=== PATIENT | female | born 1945 | race Caucasian/White ===

== ENCOUNTER → 2020-04-12 | Outpatient (CLI) | payer MEDICARE, OTHER ==
[~2020-04-12] MED LIST: RT-ALBUTEROL SULF 2.5 MG/3 ML PRE-MIX VIAL INH ONE
== END ==
LOC: SLEEP 14:02
PROVIDERS: ATTEND Nurse Practitioner Family
DX: G47.33 Obstructive sleep apnea (adult) (pediatric) (principal); G47.10 Hypersomnia, unspecified; E66.01 Morbid (severe) obesity due to excess calories; R05 Cough; Z91.14 Patient's other noncompliance with medication regimen
CPT/HCPCS: 94060; 94726; 94729; G0399

== ENCOUNTER → 2020-05-19 | Outpatient (CLI) | payer MEDICARE, OTHER ==
--- NOTE | 2020-05-19 10:14 | Diagnostic Imaging Report ---
PROCEDURE: US Venous Lower Ext [place]. TECHNIQUE: Multiple real-time grayscale images were obtained over the lower extremities in various projections, bilaterally. Additional duplex Doppler and color Doppler images were also obtained. INDICATION: Bilateral leg swelling. FINDINGS: Color Doppler imaging shows normal blood flow throughout the lower extremity venous system bilaterally. Calf compression showed normal augmentation of flow at the popliteal level. No evidence of popliteal cyst. IMPRESSION: No evidence of venous thrombosis. Dictated by: Dictated on workstation # [id number]
--- NOTE | 2020-05-19 10:40 | Diagnostic Imaging Report ---
PROCEDURE: CT chest without contrast. TECHNIQUE: Multiple contiguous axial images were obtained through the chest without the use of intravenous contrast. Auto Exposure Controls were utilized during the CT exam to meet ALARA standards for radiation dose reduction. INDICATION: Leg swelling COMPARISON: None available FINDINGS: No pathologically enlarged lymph nodes within the chest. Moderate scattered vascular calcifications within the thoracic aorta and its branch vessels, including within the coronary arteries. The heart is borderline enlarged. No pericardial effusion. No significant pleural effusion. Tiny hiatal hernia. No pneumothorax. Calcified granuloma within the right upper lobe. Reticular opacities with associated peribronchial thickening and mild tree-in-bud nodularity is identified within the left lower lobe and lingula. Multiple 6 mm and smaller pulmonary nodules are noted within the lungs bilaterally. The trachea is patent. Cholecystectomy. The left kidney is surgically absent. Chronic healed right-sided rib fractures. Scattered osseous degenerative changes without acute osseous normality. IMPRESSION: Focal reticular opacities and interstitial opacities within the left lower lobe with peribronchial thickening, likely relates to a focal bronchopneumonia. Multiple bilateral sub-6 mm pulmonary nodules. These are indeterminate. However, given provided history, metastatic disease is not excluded. Comparison to prior imaging would be beneficial. If no prior imaging is available, then a follow-up CT of the chest is recommended in 6 months to reevaluate. The heart is borderline enlarged. Left nephrectomy. Dictated by: Dictated on workstation # [id number]
== END ==
LOC: RAD 08:45
PROVIDERS: ATTEND Nurse Practitioner Family
DX: M79.89 Other specified soft tissue disorders (principal); R91.8 Other nonspecific abnormal finding of lung field; I51.7 Cardiomegaly; R94.2 Abnormal results of pulmonary function studies; R06.00 Dyspnea, unspecified; R05 Cough; Z90.5 Acquired absence of kidney
CPT/HCPCS: 71250; 93970

== ENCOUNTER 2020-06-01 05:39 | Outpatient (CLI) | payer MEDICARE, OTHER ==
[~2020-06-01] VITALS: Ht 160 cm; Wt 98.1 kg
[2020-06-01] MEDS ORDERED: VITA-235 PO (13:59)
[2020-06-01] MEDS ORDERED: ALEN70TA5 PO (14:53)
[2020-06-01] MEDS ORDERED: SOLI5TAB7 PO (14:53)
[2020-06-01] MEDS ORDERED: ALPR0.254 PO (14:53)
[2020-06-01] MEDS ORDERED: MONT10TA26 PO (14:53)
[2020-06-01] MEDS ORDERED: PANT40TA3 PO (14:53)
[2020-06-01] MEDS ORDERED: GLIM4TAB5 PO (14:53)
[2020-06-01] MEDS ORDERED: CHOL400T PO (14:53)
[2020-06-01] MEDS ORDERED: CYAN250010 PO (14:53)
[2020-06-01] MEDS ORDERED: MULT-1136 PO (14:53)
[2020-06-01] MEDS ORDERED: CITA20TA9 PO (14:53)
[2020-06-01] MEDS ORDERED: LEVO25TA5 PO (14:53)
[2020-06-01] MEDS ORDERED: MAGN250T13 PO (14:53)
[2020-06-01] MEDS ORDERED: GABA300C PO (14:53)
[2020-06-01] MEDS ORDERED: ATOR40TA70 PO (14:53)
[2020-06-01] MEDS ORDERED: ASPI-999 PO (14:53)
[2020-06-01] MEDS ORDERED: FLUT9.9S NS (14:53)
[2020-06-01] MEDS ORDERED: LOSA25TA41 PO (14:53)
== END 2020-06-01 14:55 | disposition home or self-care (01) ==
LOC: PREOP 05:39
PROVIDERS: ATTEND Internal Medicine Critical Care Medicine
DX: Z01.818 Encounter for other preprocedural examination (principal)

== ENCOUNTER 2020-06-08 07:31 | Day surgery (SDC) | payer MEDICARE, OTHER ==
[2020-06-08] VITALS (16 sets, daily range): BP systolic 117–208; BP diastolic 54–100
[~2020-06-08] VITALS: Ht 160 cm; Wt 98.1 kg
[~2020-06-08 07:31] MED LIST changes: +ALEN70TA5 PO; +ALPR0.254 PO; +ASPI-999 PO; +ATOR40TA70 PO; +CHOL400T PO; +CITA20TA9 PO; +CYAN250010 PO; +FLUT9.9S NS; +GABA300C PO; +GLIM4TAB5 PO; +LEVO25TA5 PO; +LOSA25TA41 PO; +MAGN250T13 PO; +MONT10TA26 PO; +MULT-1136 PO; +PANT40TA52 PO; -RT-ALBUTEROL SULF 2.5 MG/3 ML PRE-MIX VIAL INH ONE; +SOLI5TAB7 PO; +VITA-235 PO
[2020-06-08] MEDS ORDERED: LIDOCAINE PF 1% 2 ML VIAL IJ ONE (07:32)
[2020-06-08] MEDS ORDERED: LIDOCAINE PF 2% 5 ML (XYLOCAINE) VIAL INJ ONE (07:32)
[2020-06-08] MEDS ORDERED: LIDOCAINE JELLY 2% 6 ML SYRINGE MM ONE (07:32)
[2020-06-08] MEDS ORDERED: NS IV 500 ML 500 ML ONE (07:43)
[2020-06-08] MEDS ORDERED: NS IV 500 ML 500 ML IV PRN (08:04)
[2020-06-08] MEDS ORDERED: fentaNYL INJECTION 100 MCG/2 ML AMP ONE ×2 (08:36)
[2020-06-08] MEDS ORDERED: MIDAZOLAM 5 MG/5 ML (VERSED) VIAL ONE ×2 (08:36→08:37)
[2020-06-08] MEDS: MIDAZOLAM 5 MG/5 ML (VERSED) VIAL IV PRN ×3 (09:23→09:28)
[2020-06-08] MEDS ORDERED: RT-ALBUTEROL/IPRATROPIUM 3 ML (DUONEB) VIAL ONE (09:48)
[2020-06-08] MEDS ORDERED: fentaNYL INJECTION 100 MCG/2 ML AMP IVP ONE (10:30)
--- NOTE | 2020-06-08 10:44 | Diagnostic Imaging Report ---
Indication: Bronchoscopy follow-up Portable chest 10:31 AM Heart size and pulmonary vascularity are normal. There is some discoid atelectasis the left lower lung. Lungs otherwise clear. There are no effusions or pneumothoraces. IMPRESSION: Minimal left lower lung discoid atelectasis. Dictated by: Dictated on workstation # [id number]
[2020-06-08] MEDS ORDERED: NALOXONE 0.4 MG/ML 1 ML (NARCAN) VIAL IV ONE (11:30)
--- NOTE | 2020-07-12 08:48 | Pulmonary Procedures ---
Pulmonary Procedures Date of Procedure Date of Service: Jun 08, 2020 (Late entry ) Bronch Bronchoscopy with fleuroscopy bronchoalveolar lavage (BAL), transbronchial washes and, brushes. Preop DX cough, infiltrate. Postop DX: same Complications: none After informed consent obtained and formal time out pt was sedated using Fentanyl and Versed. Bronchoscope was advanced through the nare and vocal cords. 1% lidocaine was used to anesthetize vocal cords, epiglottis, ricardo, and left/right main stem bronchus. An anatomical tour was undertaken down to the segmental bronchi bilaterally. No endobronchial lesions noted. From the RML a bronchoalveolar lavage (BAL), transbronchial washes and, brushes were obtained. Pt tolerated procedure well. No complications noted. Stat CXR is pending. DARLENE LEWIS DO Jul 12, 2020 08:48
== END 2020-06-08 11:30 | disposition home or self-care (01) ==
LOC: ENDO 07:31
PROVIDERS: ATTEND Internal Medicine Critical Care Medicine
DX: R05 Cough (principal); R91.8 Other nonspecific abnormal finding of lung field; R06.00 Dyspnea, unspecified; J30.9 Allergic rhinitis, unspecified; K21.9 Gastro-esophageal reflux disease without esophagitis; G47.33 Obstructive sleep apnea (adult) (pediatric); Z79.82 Long term (current) use of aspirin; Z79.899 Other long term (current) drug therapy; Z90.710 Acquired absence of both cervix and uterus; Z20.828 Contact with and (suspected) exposure to other viral communicable diseases; Z83.3 Family history of diabetes mellitus; Z80.42 Family history of malignant neoplasm of prostate
CPT/HCPCS: 31623; 31624; 71045; 87015; 87070; 87077; 87101; 87116; 87186; 87205; 87206; 88112; 88305; 88312; 94640; U0002; 87635